=== PATIENT | female | born 1940 | race Caucasian/White ===

== ENCOUNTER 2022-07-15 14:03 | Outpatient (CLI) | payer MEDICARE, OTHER ==
--- NOTE | 2022-07-15 16:46 | DEXA Report ---
PROCEDURE: Dexa Spine and/or Hip INDICATIONS: POST MENOPAUSAL TECHNIQUE: Dual energy x-ray absorptiometry (DXA) was performed on a Heck[employer] System. Regions measur ed are the AP Spine, femoral neck, and if needed forearm. COMPARISON: None. FINDINGS: Lumbar Spine: Bone Mineral Density 1.768 g/cm/cm,T score 4.9, normal. May be artificially elevated related to de generative changes of the spine. Left Femoral Neck: Bone Mineral Density 1.090 g/cm/cm, T score 0.4, normal Left Hip: Bone Mineral Density 1.054 g/cm/cm,T score 0.4, normal Left forearm: Bone Mineral Density 1.046 g/cm/cm, T score 1.9, normal (T score greater or equal to -1.0: NORMAL) (T score from -1.1 to -2.4: OSTEOPENIA) (T score less than or equal to -2.5 to: OSTEOPOROSIS) Impression: Normal bone mineral density. Patients with diagnosis of osteoporosis or osteopenia should have regular bone mineral density assess ment. For those eligible for Medicare, routine testing is allowed once every 2 years. Testing frequ ency can be increased for patients who have rapidly progressing disease or for those who are receivin g medical therapy to restore bone mass. Reviewed by: Felton Jordan MD on 07/15/2022 4:45 PM PST Approved by: Felton Jordan MD on 07/15/2022 4:45 PM PST Station ID: [id number]
== END 2022-07-15 14:04 | disposition home or self-care (01) ==
LOC: DI 14:03 → MERGE 14:30
PROVIDERS: ATTEND Nurse Practitioner
DX: Z78.0 Asymptomatic menopausal state (principal)

== ENCOUNTER 2023-03-07 18:45 | Outpatient (CLI) | payer MEDICARE, OTHER | END 2023-03-07 18:46 | disposition EMS.NT | LOC: EMS 18:45 | DX: R53.1 Weakness (principal) ==

== ENCOUNTER 2023-03-10 23:57 | Outpatient (CLI) | payer MEDICARE, OTHER | END 2023-03-10 23:59 | disposition EMS.NT | LOC: EMS 23:57 | DX: Z03.89 Encounter for observation for other suspected diseases and conditions ruled out (principal) ==